=== PATIENT | female | born 1960 ===

== ENCOUNTER 2023-05-16 16:43 | Emergency (ER) | payer BC, MEDICAID, SELFPAY ==
[2023-05-16 16:56] VITALS: BP 155/91; PULSE 73; RESP 18; TEMP 36; O2SAT 97
[2023-05-16 17:07] LABS: Appearance Urine Clear (Clear); Bilirubin Urine Negative (Negative); Blood Urine 2+ (Negative); Color Urine Yellow (Yellow); Glucose Urine Negative (Negative); Ketones Urine Negative (Negative); Leukocyte Esterase Urine 1+ (Negative); Nitrite Urine Negative (Negative); Protein Urine Negative (Negative); Urobilinogen Urine 0.2 (0.2-1.0)
--- NOTE | 2023-05-16 17:10 | CRLHL7_ITS ---
For Patients: As a result of the Century Cures Act, medical imaging exams and procedure reports are released immediately into your electronic medical record. You may view this report before your referring provider. If you have questions, please contact your health care provider. Indication: Right lower quadrant pain Technique: Volumetric multidetector CT images of the abdomen and pelvis were without the administration of intravenous contrast. Comparison: None available. Findings: The lung bases are clear. The liver is enlarged with moderate hepatomegaly and hepatic steatosis. There is prior cholecystectomy. There is no significant common biliary ductal dilatation or abrupt cut off. The spleen is normal in attenuation and size. The stomach and duodenum are grossly unremarkable. The pancreas is normal in attenuation without significant atrophy. There is a small nodule within the right adrenal gland measuring 1.0 centimeters. There are nonobstructive calculi within the bilateral collecting systems without evidence of hydronephrosis or distal obstructive calculus. There is moderate stool seen throughout the colon with distal colonic diverticulosis without evidence of diverticulitis. The appendix is unremarkable. There is no significant mesenteric, retroperitoneal, or pelvic sidewall lymph nodes. The aorta is nonaneurysmal. There is no significant atherosclerotic disease appreciated. There is prior hysterectomy. There is no free fluid or free air. The anterior abdominal wall is intact without significant hernias. The lumbar vertebral body heights are grossly maintained with mild to moderate multilevel degenerative disc disease. No evidence of displaced fracture. Impression: Nephrolithiasis without evidence of distal obstructive calculus. Moderate hepatomegaly and hepatic steatosis. Normal appendix. Small adrenal nodule within the right adrenal gland measuring 1.0 centimeters in greatest dimension. Please note that all CT scans at this facility use dose modulation, iterative reconstruction, and/or weight-based dosing when appropriate to reduce radiation dose to as low as reasonably achievable. Dictated by Sd Westbrook MD @ 05/16/2023 5:49:40 PM (Electronically Signed)
--- NOTE | 2023-05-16 17:10 | ED_ITS ---
HPI - General Adult General Chief complaint: Abdominal Pain Stated complaint: Abdominal Pain Time Seen by Provider: 05/16/23 16:49 Source: patient Mode of arrival: ambulatory Limitations: no limitations History of Present Illness HPI narrative: 62-year-old female coming in today complaining of right lower quadrant abdominal pain that started approximately 2 weeks ago. In the last 2 days it has gotten significantly more painful. The pain starts in the mid right abdomen and radiates down to the right lower quadrant all the way into the groin. She is also complaining of increased urinary frequency but no urgency or dysuria. She denies any blood in her urine. She denies any fevers, is complaining of chills on and off. Denies vomiting but is complaining of nausea. Denies any current diarrhea or constipation, she has been having 1 or 2 bowel movements per day. No changes in her appetite. Pain is not worse with eating. Nothing seems to make the pain better or worse. Patient's past medical history significant for hypertension, diabetes, history of kidney stones, fibromyalgia. Patient tells me that she has had a hysterectomy with bilateral oophorectomy and cholecystectomy in the past as well as a kidney stone retrieval procedure. Related Data Home Medications Medication Instructions Recorded Confirmed atovaquone 250 mg-proguanil 100 mg tab PO DAILY 05/16/23 tablet blood sugar diagnostic (Accu-Chek 05/16/23 05/16/23 Guide test strips) cetirizine 10 mg tablet 10 mg PO DAILY 05/16/23 05/16/23 chlorthalidone 25 mg tablet 25 mg PO DAILY 05/16/23 05/16/23 fluticasone propionate 50 2 spray intranasal DAILY 05/16/23 05/16/23 mcg/actuation nasal spray,suspension irbesartan 150 mg tablet 150 mg PO DAILY 05/16/23 05/16/23 metformin 500 mg tablet,extended 500 mg PO BID 05/16/23 05/16/23 release 24 hr pregabalin 100 mg capsule 100 mg PO 3XD 05/16/23 05/16/23 Previous Rx's Medication Instructions Recorded nitrofurantoin 100 mg PO Q12H 5 days #10 caps 05/16/23 monohydrate/macrocrystals 100 mg capsule (Macrobid) Allergies Allergy/AdvReac Type Severity Reaction Status Date / Time morphine Allergy Verified 05/16/23 16:56 Penicillins Allergy Verified 05/16/23 16:56 Review of Systems Status of ROS: Reports: 10 or more systems reviewed and unremarkable except as noted in History and below [facility] Social History Smoking Status: Never smoker How often do you have a drink containing alcohol: never How often do you have six or more drinks on one occasion: Never AUDIT-C Alcohol total score: 0 Non-prescribed substance use: denies use Exam Narrative: Exam Narrative: Well-nourished well-developed patient in no acute distress. Alert and oriented. Answers questions appropriately. Mood and affect are appropriate. Thoughts are goal oriented and rational. No tangential or magical thinking noted. Patient speaks in full sentences without needing to catch her breath. HEENT: Normocephalic atraumatic. Pupils are equally round reactive to light. Extraocular muscles are intact. Conjunctivae are moist without any icterus noted. Moist mucous membranes. Posterior pharynx is normal. Neck is soft wi thout any lymphadenopathy or thyromegaly. No masses are appreciated. Cardiovascular: Heart is regular rate and rhythm S1 and S2 are present without any murmurs. Lungs: Clear to auscultation bilaterally no wheezes rhonchi or rales are appreciated. Patient takes deep breaths without any discomfort. Abdomen: Soft and nondistended with normal bowel sounds. No guarding or rebound. No masses or organomegaly appreciated. She does have some mild tenderness in the right lower quadrant. She has mild CVA tenderness on the right. Extremities: Bilateral lower extremities are without edema. Normal DP and PT pulses. Skin: Well perfused without any obvious rashes. Const: Vital Signs, click to edit/add: Vital Signs - 24 hr 05/16/23 16:56 05/16/23 17:57 Temperature 96.8 F L Pulse Rate [Right Pulse Oximeter] 73 60 Respiratory Rate 18 Blood Pressure [Ri ght Upper Arm] 155/91 H 133/78 Pulse Oximetry 97 97 Oxygen Delivery Me thod Room Air Room Air Course Course Hospital Course: IV was established and patient received a L of normal saline and IV Toradol. Labs were drawn and a urine sample was collected. Labs are unremarkable-she has no evidence inflammation or infection. Urine does have blood in it. Abdominal CT scan did show multiple kidney stones without any evidence of hydronephrosis or infection. Cause of her discomfort unclear. She felt some relief from the Toradol. Vital Signs Vital signs: Initial Vital Signs Temperature 96.8 F L 05/16/23 16:56 Temperature Source Temporal Artery Scan 05/16/23 16:56 Pulse Rate 73 05/16/23 16:56 Respiratory Rate 18 05/16/23 16:56 Blood Pressure 155/91 H 05/16/23 16:56 Blood Pressure Mean 112 H 05/16/23 16:56 Blood Pressure Position Sitting 05/16/23 16:56 Pulse Oximetry 97 05/16/23 16:56 Oxygen Delivery Method Room Air 05/16/23 16:56 Vital Signs Temperature 96.8 F L 05/16/23 16:56 Pulse Rate 73 05/16/23 16:56 Respiratory Rate 18 05/16/23 16:56 Blood Pressure 155/91 H 05/16/23 16:56 Pulse Oximetry 97 05/16/23 16:56 Oxygen Delivery Method Room Air 05/16/23 16:56 Temperature 96.8 F L 05/16/23 16:56 Pulse Rate 60 05/16/23 17:57 Respiratory Rate 18 05/16/23 16:56 Blood Pressure 133/78 05/16/23 17:57 Pulse Oximetry 97 05/16/23 17:57 Oxygen Delivery Method Room Air 05/16/23 17:57 Medical Decision Making MDM Narrative Medical decision making narrative: 62-year-old female with right-sided abdominal pain, etiology unclear. She does have multiple kidney stones without evidence of hydronephrosis or infection. Given blood and leukocyte esterase in her urine it would not be unreasonable to treat her with for an antibiotic for potential UTI. We discussed reasons to return to the ER and follow up with her primary care provider. Lab Data Lab results reviewed: Yes I reviewed the patient's lab results Labs: Lab Results 05/16/23 05/16/23 Range/Units 17:00 17:15 WBC 5.65 (4.50-11.00) K/uL RBC 5.04 (4.00-5.20) m/uL Hgb 13.7 (12.0-16.0) gm/dL Hct 41.1 (33.0-51.0) % MCV 82 (80-100) fL MCH 27 (26-34) pg MCHC 33 (32-36) gm/dL RDW Coeff of Riddhi 13.7 (11.5-15.5) % Plt Count 194 (140-440) K/uL Neut % (Auto) 49.3 (42.0-72.0) % Lymph % (Auto) 39.5 (20-44) % Mitchell % (Auto) 7.6 (0.0-11.0) % Eos % (Auto) 3.4 (0.0-7.0) % Baso % (Auto) 0.2 (0.0-3.0) % Neut # (Auto) 2.79 (1.7-7.0) K/uL Lymph # (Auto) 2.23 (0.90-2.90) K/uL Mitchell # (Auto) 0.40 (0.00-0.90) K/UL Eos # (Auto) 0.19 (0.00-0.50) K/uL Baso # (Auto) 0.01 (0.00-0.30) K/uL Sodium 139 (135-149) mmol/L Potassium 3.2 L (3.6-5.1) mmol/L Chloride 97 (96-114) mmol/L Carbon Dioxide 33 H (20-32) mmol/L BUN 19 (7-30) mg/dL Creatinine 0.7 (0.5-1.5) mg/dL Estimated GFR 99 ml/min Glucose 123 H (60-115) mg/dL Lactate 1.2 (0.5-1.9) mmol/L Calcium 10.0 (8.4-10.6) mg/dL Total Bilirubin 0.7 (0.1-1.5) mg/dL Direct Bilirubin 0.0 (0.0-0.5) mg/dL AST 47 H (12-35) U/L ALT 55 H (4-35) U/L Alkaline Phosphatase 64 (40-150) U/L C-Reactive Protein 0.5 (0.5-1.0) mg/dL Total Protein 8.4 H (6.0-8.3) g/dL Albumin 4.7 (3.3-5.0) g/dL Lipase 93 (23-300) U/L Urine Color Yellow (Yellow) Urine Appearance Clear (Clear) Urine pH 6.0 (5.0-8.5) Ur Specific [place] 1.010 (1.000-1.030) Urine Protein Negative (Negative) Urine Glucose (UA) Negative (Negative) Urine Ketones Negative (Negative) Urine Blood 2+ A (Negative) Urine Nitrite Negative (Negative) Urine Bilirubin Negative (Negative) Urine Urobilinogen 0.2 (0.2-1.0) Ur Leukocyte Esterase 1+ A (Negative) Urine RBC 5-10 A (0-2) Urine WBC 2-5 (0-5) Ur Squamous Epith Cells Few (None-Few) Urine Bacteria Few A (None) Imaging Data CT scan - abdomen: Attestation: I have reviewed the pertinent imaging results. Radiologist's impression: Volumetric multidetector CT images of the abdomen and pelvis were without the administration of intravenous contrast. Comparison: None available. Findings: The lung bases are clear. The liver is enlarged with moderate hepatomegaly and hepatic steatosis. There is prior cholecystectomy. There is no significant common biliary ductal dilatation or abrupt cut off. The spleen is normal in attenuation and size. The stomach and duodenum are grossly unremarkable. The pancreas is normal in attenuation without significant atrophy. There is a small nodule within the right adrenal gland measuring 1.0 centimeters. There are nonobstructive calculi within the bilateral collecting systems without evidence of hydronephrosis or distal obstructive calculus. There is moderate stool seen throughout the colon with distal colonic diverticulosis without evidence of diverticulitis. The appendix is unremarkable. There is no significant mesenteric, retroperitoneal, or pelvic sidewall lymph nodes. The aorta is nonaneurysmal.? There is no significant atherosclerotic disease appreciated. There is prior hysterectomy. There is no free fluid or free air. The anterior abdominal wall is intact without significant hernias. The lumbar vertebral body heights are grossly maintained with mild to moderate multilevel degenerative disc disease. No evidence of displaced fracture. Impression: Nephrolithiasis without evidence of distal obstructive calculus. Moderate hepatomegaly and hepatic steatosis. Normal appendix. Small adrenal nodule within the right adrenal gland measuring 1.0 centimeters in greatest dimension. Discharge Plan Discharge Clinical Impression: UTI (urinary tract infection), Abdominal pain Patient Disposition: Home, Self-Care Condition: Stable Additional Instructions: Take all antibiotics as prescribed. Follow-up with your primary care provider in the next 7-10 days. Return to the ER if you develop worsening pain, fever or vomiting. Prescriptions: New nitrofurantoin monohyd/m-cryst [Macrobid] 100 mg capsule 100 mg PO Q12H 5 Days Qty: 10 0RF Rx Instructions: must administer with a meal/food No Action cetirizine 10 mg tablet 10 mg PO DAILY atovaquone-proguanil 250-100 mg tablet PO DAILY chlorthalidone 25 mg tablet 25 mg PO DAILY (DME) Accu-Chek Guide test strips Strip MISCELLANEOUS BID irbesartan 150 mg tablet 150 mg PO DAILY fluticasone propionate 50 mcg/actuation spray,suspension 2 spray INTRANASAL DAILY metformin 500 mg tablet extended release 24 hr 500 mg PO BID pregabalin 100 mg capsule 100 mg PO 3XD Stand Alone Forms: [facility] Info Instructions
[2023-05-16] MEDS: KETOROLAC 30 MG/ML inj IVP (17:28)
[2023-05-16 17:29] LABS: Basophils Absolute Auto 0.01 K/uL (0.00-0.30); Basophils Percent Auto 0.2 % (0.0-3.0); Eosinophils Absolute Auto 0.19 K/uL (0.00-0.50); Eosinophils Percent Auto 3.4 % (0.0-7.0); Hematocrit 41.1 % (33.0-51.0); Hemoglobin* 13.7 gm/dL (12.0-16.0); Lactate* 1.2 mmol/L (0.5-1.9); Lymphocytes Absolute Auto 2.23 K/uL (0.90-2.90); Lymphocytes Percent Auto 39.5 % (20-44); Mean Corpuscular HGB Conc 33 gm/dL (32-36); Mean Corpuscular Hemoglobin 27 pg (26-34); Mean Corpuscular Volume 82 fL (80-100); Monocytes Percent Auto 7.6 % (0.0-11.0); Neutrophils Absolute Auto 2.79 K/uL (1.7-7.0); Neutrophils Percent Auto 49.3 % (42.0-72.0); Platelet Count* 194 K/uL (140-440); RDW Coefficient of Variation % 13.7 % (11.5-15.5); Red Blood Count 5.04 m/uL (4.00-5.20); White Blood Count* 5.65 K/uL (4.50-11.00)
[2023-05-16 17:35] LABS: Slide Review Reflex No
[2023-05-16 17:41] LABS: Bacteria Urine Few; Squamous Epithelial Cell Urine Few (None-Few)
[2023-05-16 17:48] LABS: Albumin* 4.7 g/dL (3.3-5.0)
[2023-05-16 17:49] LABS: Chloride* 97 mmol/L (96-114); Sodium* 139 mmol/L (135-149)
[2023-05-16 17:51] LABS: Creatinine* 0.7 mg/dL (0.5-1.5); Estimated Glomerular Filt Rate 99 ml/min
[2023-05-16 17:52] LABS: Alanine Aminotransferase* 55 U/L (4-35); Alkaline Phosphatase* 64 U/L (40-150); Aspartate Amino Transferase* 47 U/L (12-35); Bilirubin Total* 0.7 mg/dL (0.1-1.5); Blood Urea Nitrogen* 19 mg/dL (7-30); Carbon Dioxide* 33 mmol/L (20-32); Glucose* 123 mg/dL (60-115); Lipase* 93 U/L (23-300); Potassium* 3.2 mmol/L (3.6-5.1); Total Protein* 8.4 g/dL (6.0-8.3)
[2023-05-16] MEDS: 0.9 % SODIUM CHLORIDE 1000 ml 1,000 ML IV (17:54)
[2023-05-16 17:55] LABS: C Reactive Protein* 0.5 mg/dL (0.5-1.0)
[2023-05-16 17:57] VITALS: BP 133/78; PULSE 60; O2SAT 97
== END 2023-05-16 18:40 | disposition home or self-care (01) ==
PROVIDERS: Emergency Provider Family Medicine
DX: N39.0 Urinary tract infection, site not specified (principal)
CPT/HCPCS: 36415; 74176; 80048; 80076; 81001; 83605; 83690; 85025; 86140; 87086; 96374; 99283; 99284; J1885; J7030

== ENCOUNTER 2023-11-08 21:53 | Emergency (ER) | payer BC, MEDICAID, SELFPAY ==
[2023-11-08 22:28] VITALS: BP 123/80; PULSE 74; RESP 18; TEMP 36.1; O2SAT 95; BMI 24.4
--- NOTE | 2023-11-08 22:54 | ED_ITS ---
HPI - Ear Problem General Time Seen by Provider: 22:54 Date Seen: 11/08/23 Chief complaint: Ear/Nose/Throat Problem Stated complaint: right ear pain/pressure Time Seen by Provider: 11/08/23 22:54 Source: patient, RN notes reviewed and old records reviewed Mode of arrival: ambulatory Limitations: no limitations History of Present Illness HPI Narrative: Patient is a very pleasant 63-year-old female with a history of left otitis media greater than 2 weeks ago who comes to the emergency room with complaints of 5-7 days of right maxillary sinus discomfort, right ear pain over the last 2 days and drainage from this ear. Patient is here with her daughter who is currently a medical student in [place]. She was going to be going into Neurology. They note that patient had illness around and subsequently was seen by primary MD who noted that things seem to be improving. However shortly there after on 10/27 patient had drainage and pain from the left ear. She was placed on Zithromax I assume because of a penicillin allergy and improved. Now she presents this evening with increasing discomfort to her right cheek and right ear. She does think there was drainage from her right ear earlier today. She states that she has pain medications at home that she took. She thinks she may have had a fever yesterday. Again she has been ill for 5-7 days. No vomiting. No sore throat. No cough or shortness of breath. Patient describes a sinus surgery on the left many years ago. Was told that she may need sinus surgery on the right. The right side is what is bothering her tonight. Related Data Home Medications Medication Instructions Recorded Confirmed atovaquone 250 mg-proguanil 100 mg tab PO DAILY 05/16/23 tablet blood sugar diagnostic (Accu-Chek 05/16/23 05/16/23 Guide test strips) cetirizine 10 mg tablet 10 mg PO DAILY 05/16/23 05/16/23 chlorthalidone 25 mg tablet 25 mg PO DAILY 05/16/23 11/08/23 fluticasone propionate 50 2 spray intranasal DAILY 05/16/23 11/08/23 mcg/actuation nasal spray,suspension irbesartan 150 mg tablet 150 mg PO DAILY 05/16/23 11/08/23 metformin 500 mg tablet,extended 500 mg PO BID 07/04/23 12/27/23 release 24 hr pregabalin 100 mg capsule 100 mg PO 3XD 05/16/23 11/08/23 albuterol 90 mcg/actuation aerosol mcg inhalation 11/08/23 inhaler clonidine 0.2 mg/24 hr weekly 1 patch topical 11/08/23 transdermal patch erythromycin 5 mg/gram (0.5 %) eye ophthalmic (eye) QID 11/08/23 ointment esomeprazole magnesium 40 mg 40 mg PO DAILY 11/08/23 11/08/23 capsule,delayed release fluticasone propionate 50 1 spray intranasal BID PRN 11/08/23 11/08/23 mcg/actuation nasal spray,suspension (24 Hour Allergy Relief) metformin 500 mg/5 mL oral solution 500 mg PO BID 11/08/23 naproxen 250 mg tablet 250 mg PO DAILY 11/08/23 11/08/23 polyvinyl alcohol 1.4 % eye drops 1 drp ophthalmic (eye) BID-TID PRN 11/08/23 11/08/23 simvastatin 20 mg tablet 20 mg PO QPM 11/08/23 11/08/23 Previous Rx's Medication Instructions Recorded nitrofurantoin 100 mg PO Q12H 5 days #10 caps 05/16/23 monohydrate/macrocrystals 100 mg capsule (Macrobid) cefdinir 300 mg capsule 300 mg PO BID 10 days #20 caps 11/08/23 Allergies Allergy/AdvReac Type Severity Reaction Status Date / Time morphine Allergy Mild Hypotension Verified 11/08/23 22:37 Penicillins Allergy Mild Rash Verified 11/08/23 22:37 Review of Systems Status of ROS: Reports: 6 or more systems reviewed and unremarkable except as noted in History and below [facility] Social History Smoking Status: Never smoker How often do you have a drink containing alcohol: never How often do you have six or more drinks on one occasion: Never AUDIT-C Alcohol total score: 0 Non-prescribed substance use: denies use Exam Narrative: Exam Narrative: Alert and oriented. Eyes are clear. Left TM within normal limits. Right TM is obscured by cerumen. She does have pain with external manipulation of the ear. A small amount of debris in the ear canal but no ezequiel fluid is noted. There are no lesions in the canal. Her right sinus appears slightly more full than the left. There is a hypersensitivity palpation response palpation on the right. Neck is supple without lymphadenopathy. No trismus noted oral cavity with moist mucous membranes. No post exudate in the posterior oropharynx. Neck is supple. Heart with regular rate and rhythm and lungs are clear bilaterally. Moving all extremities. Patient appears tired but she is nontoxic in appearance Const: Vital Signs, click to edit/add: Vital Signs - 24 hr 11/08/23 22:28 11/08/23 23:23 11/08/23 23:23 Temperature 96.9 F L 96.9 F L 98.2 F Pulse Rate [Pulse Oximeter] 74 74 79 Respiratory Rate 18 18 18 Blood Pressure [Ri t Upper Arm] 123/80 123/80 118/79 Pulse Oximetry 95 95 Oxygen Delivery Me thod Room Air Room Air Documenting provider has reviewed patient's vital signs: yes Course Vital Signs Vital signs: Initial Vital Signs Temperature 96.9 F L 11/08/23 22:28 Temperature Source Temporal Artery Scan 11/08/23 22:28 Pulse Rate 74 11/08/23 22:28 Respiratory Rate 18 11/08/23 22:28 Blood Pressure 123/80 11/08/23 22:28 Blood Pressure Mean 94 11/08/23 22:28 Blood Pressure Position Sitting 11/08/23 22:28 Pulse Oximetry 95 11/08/23 22:28 Oxygen Delivery Method Room Air 11/08/23 22:28 Vital Signs Temperature 96.9 F L 11/08/23 22:28 Pulse Rate 74 11/08/23 22:28 Respiratory Rate 18 11/08/23 22:28 Blood Pressure 123/80 11/08/23 22:28 Pulse Oximetry 95 11/08/23 22:28 Oxygen Delivery Method Room Air 11/08/23 22:28 Temperature 98.2 F 11/08/23 23:23 Pulse Rate 79 11/08/23 23:23 Respiratory Rate 18 11/08/23 23:23 Blood Pressure 118/79 11/08/23 23:23 Pulse Oximetry 95 11/08/23 23:23 Oxygen Delivery Method Room Air 11/08/23 23:23 Medications Administered Medications: Discontinued Medications Generic Name Dose Route Start Last Admin Trade Name Freq PRN Reason Stop Dose Admin Ceftriaxone Sodium 1 gm 11/08/23 23:08 11/08/23 23:22 Ceftriaxone 1 Gm Vial IM 11/08/23 23:09 1 gm ONCE ONE Administration Lidocaine HCl 2.1 ml 11/08/23 23:08 11/08/23 23:22 Lidocaine 1% 5 Ml (Pf) 5 Ml Vial IM 2.1 ml DIRECTED PRN Administration Pain Medical Decision Making MDM Narrative Medical decision making narrative: 1. Right-sided otalgia-patient with recent ear infection on the left. I am unable to visualize TM secondary cerumen. Patient was so tender with examination that I did not want to irrigate the ear at this time. Suggest antibiotic treatment. See 2. 2. Right sinusitis-patient has increased discomfort in the right sinus. History of recent illness. Suggest treatment with an antibiotic. I do not feel con fident and Zithromax for this type of treatment I do talk to patient about that. She has an allergy to penicillin and therefore will use Omnicef after initial injection of Rocephin 1 g IV. 3. Disposition-at this time I did also initially consider COVID swab but patient has had cold-like symptoms for quite some time. At this time she would be out of the window for both Tamiflu or Paxlovid if she were to be positive. Recommend symptomatic cares to include Tylenol ibuprofen or patient may use her pain medicine of choice that she has at home. Seek medical attention for worsening symptoms and as needed. Discharge Plan Discharge Clinical Impression: Otitis media, Sinusitis Patient Disposition: Home, Self-Care Condition: Unchanged Additional Instructions: Continue Omnicef for treatment of ear infection and sinusitis. This was sent to your pharmacy. Ibuprofen or Tylenol as needed for discomfort. Follow-up with your primary MD for recheck. You will need to have the wax removed from your ear if it is still present. Seek medical attention for worsening symptoms especially for increasing fever, vomiting and as needed. Prescriptions: New cefdinir 300 mg capsule 300 mg PO BID 10 Days Qty: 20 0RF No Action albuterol 90 mcg/actuation aerosol inhalation clonidine 0.2 mg/24 hr patch weekly 1 patch topical erythromycin 5 mg/gram (0.5 %) ointment ophthalmic (eye) QID esomeprazole magnesium 40 mg capsule,delayed release(DR/EC) 40 mg PO DAILY fluticasone propionate [24 Hour Allergy Relief] 50 mcg/actuation spray,suspension 1 spray intranasal BID PRN Rx Instructions: administer into each nostril metformin 500 mg/5 mL solution 500 mg PO BID naproxen 250 mg tablet 250 mg PO DAILY polyvinyl alcohol 1.4 % drops 1 drp ophthalmic (eye) BID-TID PRN simvastatin 20 mg tablet 20 mg PO QPM cetirizine 10 mg tablet 10 mg PO DAILY atovaquone-proguanil 250-100 mg tablet PO DAILY chlorthalidone 25 mg tablet 25 mg PO DAILY (DME) Accu-Chek Guide test strips Strip MISCELLANEOUS BID irbesartan 150 mg tablet 150 mg PO DAILY fluticasone propionate 50 mcg/actuation spray,suspension 2 spray INTRANASAL DAILY metformin 500 mg tablet extended release 24 hr 500 mg PO BID pregabalin 100 mg capsule 100 mg PO 3XD nitrofurantoin monohyd/m-cryst [Macrobid] 100 mg capsule 100 mg PO Q12H 5 Days Qty: 10 0RF Rx Instructions: must administer with a meal/food Follow Up/Referrals: Urszula Mata MD [Primary Care Provider] - Stand Alone [facility] Info Instructions
[2023-11-08] MEDS: cefTRIAXone 1 GM VIAL IM (23:22)
[2023-11-08] MEDS: LIDOCAINE 1% 5 ml (pf) 5 ML VIAL 2.1 ML IM (23:22)
[2023-11-08 23:23] VITALS: BP 118/79; BP 123/80; PULSE 74; PULSE 79; RESP 18; TEMP 36.1; TEMP 36.8; O2SAT 95
== END 2023-11-08 23:23 | disposition home or self-care (01) ==
LOC: ED 23:16
PROVIDERS: Emergency Provider Family Medicine
DX: H66.91 Otitis media, unspecified, right ear (principal); J32.9 Chronic sinusitis, unspecified
CPT/HCPCS: 96372; 99283; J0696